=== PATIENT | female | born 1975 | race Caucasian/White ===

== ENCOUNTER 2017-01-12 20:36 | Emergency (ER) | payer MEDICAID ==
[~2017-01-12] VITALS: Ht 162.6 cm; Wt 91.0 kg
[~2017-01-12 20:36] MED LIST: IBUP-1510 PO; TRAM50TA PO
[2017-01-12] MEDS ORDERED: MORPHINE SULFATE 10 MG/ML CPJ IM ONE (22:45)
[2017-01-12] MEDS ORDERED: CEFTRIAXONE SODIUM 1 G/VIAL IM ONE (22:45)
[2017-01-12] MEDS ORDERED: LIDOCAINE HCL 1% 20ML VIAL (Pyxis) INJ ONE (23:03)
[2017-01-12 23:10] VITALS: BP 148/89
[2017-01-17] MEDS ORDERED: ALBU2.5V13 IH (07:45)
[2017-01-17] MEDS ORDERED: INSU3INS6 SUBCUT ×2 (07:46→07:47)
[2017-01-17] MEDS ORDERED: INSU100C3 SQ (07:48)
[2017-01-17] MEDS ORDERED: INSLAN SQ (07:50)
== END 2017-01-13 00:05 | disposition home or self-care (01) ==
LOC: ER 21:00
DX: L03.317 Cellulitis of buttock (principal); B37.2 Candidiasis of skin and nail; E11.9 Type 2 diabetes mellitus without complications; I10 Essential (primary) hypertension; F15.10 Other stimulant abuse, uncomplicated; J45.909 Unspecified asthma, uncomplicated; Z98.890 Other specified postprocedural states; Z88.6 Allergy status to analgesic agent; Z88.5 Allergy status to narcotic agent; Z88.2 Allergy status to sulfonamides
CPT/HCPCS: 96372; 99284; J0696; J2270; J3490

== ENCOUNTER 2018-11-24 20:24 | Inpatient (IN) | payer MEDICAID ==
[~2018-11-24] VITALS: Ht 160 cm; Wt 139.7 kg
[~2018-11-24 20:24] MED LIST changes: +ALBU2.5V13 IH; +AMLO10TA80 PO; +ASPI-1159 PO; +ATOR20TA65 PO; +BENA40TA9 PO; +FLUO10TA3 PO; -IBUP-1510 PO; +INSLAN SQ; +INSU100C3 SQ; +MAGN200T4 MT; +METO25TA6 PO; +RISP2 PO; -TRAM50TA PO
[2018-11-24] MEDS ORDERED: NITROGLYCERIN OINT 1GM/INCH UDPKT TD ONE (21:15)
[2018-11-24] MEDS ORDERED: ASPIRIN 81MG TABLET PO ONE (21:15)
[2018-11-24] MEDS ORDERED: FUROSEMIDE 40MG/4ML VIAL IV ONE (21:15)
[2018-11-24 21:26] LABS: HEMATOCRIT. 33.6 % (36.0-48.0); HEMOGLOBIN. 11.3 g/dL (12.0-16.0); MEAN CORPUSCULAR HEMOGLOBIN 28.7 pg (28.0-32.0); MEAN CORPUSCULAR VOLUME 85.2 fL (81.0-99.0); MONOCYTES % 4.3 % (2.0-8.0); NEUTROPHILS % 78.7 % (40.0-76.0); PLATELET 258 x1000/uL (130-400); RED BLOOD CELL COUNT 3.95 mill/uL (4.2-5.4); RED CELL DISTRIBUTION WIDTH 13.6 % (11.6-14.6)
[2018-11-24 21:27] LABS: CHLORIDE 111 mEq/L (98-107)
[2018-11-24 21:31] LABS: HCG SCREEN NEGATIVE
[2018-11-24 21:33] LABS: D-DIMER 1.72 mg/L FEU (<0.50); PARTIAL THROMBOPLASTIN TIME 27.8 sec (23.4-31.0); PROTHROMBIN TIME 9.9 sec (9.6-11.0)
[2018-11-25] MEDS ORDERED: IOHEXOL-350 100 ML BOTTLE ONE (02:12)
[2018-11-25] MEDS ORDERED: IBUPROFEN 400MG TABLET PO ONE (02:15)
[2018-11-25] MEDS ORDERED: CLONIDINE 0.2MG TABLET PO ONE (02:30)
[2018-11-25] MEDS ORDERED: ONDANSETRON HCL 4MG/2ML INJ IV PRN (08:45)
[2018-11-25] MEDS ORDERED: DEXTROSE 50% WATER 50ML SYRINGE IV PRN (08:45)
[2018-11-25] MEDS ORDERED: REGADENOSON 0.4 MG/5 ML IV NR (09:45)
[2018-11-25] MEDS: FUROSEMIDE 40MG/4ML VIAL IVP SCH ×2 (09:54→17:54)
[2018-11-25] MEDS: ASPIRIN 81MG TABLET PO SCH (10:00)
[2018-11-25] MEDS ORDERED: INSULIN GLARGINE UD 100 UNITS/ML SYR SUBCUT SCH (10:00)
[2018-11-25 11:09] LABS: T4 FREE 1.12 ng/dL (0.76-1.46)
[2018-11-25 11:41] LABS: CLARITY URINE CLEAR (CLEAR); COLOR URINE YELLOW (YELLOW); KETONES URINE NEGATIVE (NEGATIVE); LEUKOCYTE ESTERASE URINE NEGATIVE (NEGATIVE); NITRITE URINE NEGATIVE (NEGATIVE); OCCULT BLOOD URINE 1+ (NEGATIVE); PH URINE 6.5 (4.5-8.0); PROTEIN URINE 3+ (NEGATIVE); SPECIFIC GRAVITY URINE 1.014 (1.005-1.030); UROBILINOGEN URINE 0.2 E.U./dL (0.2-1.0)
[2018-11-25 11:54] LABS: *AMPHETAMINES SCREEN URINE NEGATIVE (NEGATIVE); *BARBITURATES SCREEN URINE NEGATIVE (NEGATIVE); *BENZODIAZEPINES SCREEN URINE NEGATIVE (NEGATIVE); *COCAINE SCREEN URINE NEGATIVE (NEGATIVE); METHADONE URINE SCREEN NEGATIVE (NEGATIVE); OPIATES URINE SCREEN NEGATIVE (NEGATIVE); PHENCYCLIDINE URINE SCREEN NEGATIVE (NEGATIVE)
[2018-11-25 11:55] LABS: CANNABINOID URINE SCREEN NEGATIVE (NEGATIVE)
[2018-11-25 12:30] VITALS: BP 170/96
[2018-11-25] MEDS ORDERED: ENOXAPARIN 30MG/0.3ML SYR SUBCUT SCH (12:30)
[2018-11-25] MEDS: BLOOD SUGAR DIAGNOSTIC STRIP TEST SCH ×2 (14:20→21:45)
[2018-11-25] MEDS: CARVEDILOL 6.25 MG TABLET PO SCH ×2 (14:31→20:34)
[2018-11-25] MEDS: ACETAMINOPHEN 325MG TABLET PO PRN (14:32)
[2018-11-25] MEDS: INSULIN LISPRO 100 UNITS/ML SUBCUT SCH ×5 (14:36→21:00)
[2018-11-25 15:47] LABS: CREATINE KINASE MB FRACTION 1.5 ng/mL (0.5-3.6)
[2018-11-25 16:00] VITALS: BP 159/73
[2018-11-25] MEDS ORDERED: PNEUMOCOCCAL 23-VAL P-SAC VAC 0.5 ML IM ONE (19:00)
[2018-11-25 20:00] VITALS: BP 146/82
[2018-11-25] MEDS: ATORVASTATIN CALCIUM 40MG TABLET PO SCH (20:34)
[2018-11-25] MEDS: AMLODIPINE 5MG TABLET PO SCH (20:34)
[2018-11-25] MEDS: INSULIN GLARGINE UD 100 UNITS/ML SYR SUBCUT SCH (21:51)
[2018-11-25] MEDS: ENOXAPARIN 40MG/0.4ML SYR SUBCUT SCH (23:41)
[2018-11-26] VITALS: BP 144/61
[2018-11-26 00:43] LABS: CREATINE KINASE MB FRACTION 1.3 ng/mL (0.5-3.6)
[2018-11-26 04:00] VITALS: BP 144/67
[2018-11-26 06:33] LABS: BASOPHILS % 0.7 % (0.0-2.0); EOSINOPHILS % 4.3 % (0.0-5.0); HEMATOCRIT. 29.3 % (36.0-48.0); LYMPHOCYTES % 40.6 % (20.0-50.0); MEAN CORPUSCULAR VOLUME 85.1 fL (81.0-99.0); MEAN PLATELET VOLUME 9.3 fl (7.4-10.4); MONOCYTES % 6.9 % (2.0-8.0); NEUTROPHILS % 47.5 % (40.0-76.0); PLATELET 254 x1000/uL (130-400); RED BLOOD CELL COUNT 3.45 mill/uL (4.2-5.4); RED CELL DISTRIBUTION WIDTH 13.7 % (11.6-14.6)
[2018-11-26] MEDS: INSULIN LISPRO 100 UNITS/ML SUBCUT SCH ×7 (06:35→21:44)
[2018-11-26] MEDS: BLOOD SUGAR DIAGNOSTIC STRIP TEST SCH ×4 (06:35→21:43)
[2018-11-26] MEDS: ACETAMINOPHEN 325MG TABLET PO PRN (06:45)
[2018-11-26 07:12] LABS: CREATINE KINASE MB FRACTION 1.2 ng/mL (0.5-3.6)
[2018-11-26 08:00] VITALS: BP 150/70
[2018-11-26] MEDS: CARVEDILOL 6.25 MG TABLET PO SCH ×2 (08:54→21:43)
[2018-11-26] MEDS: ASPIRIN 81MG TABLET PO SCH (08:54)
[2018-11-26] MEDS: AMLODIPINE 5MG TABLET PO SCH ×2 (08:54→21:42)
[2018-11-26] MEDS: FUROSEMIDE 40MG/4ML VIAL IVP SCH (08:54)
[2018-11-26] MEDS: INSULIN GLARGINE UD 100 UNITS/ML SYR SUBCUT SCH ×2 (11:43→21:50)
[2018-11-26 12:00] VITALS: BP 142/72
[2018-11-26] MEDS: ENOXAPARIN 40MG/0.4ML SYR SUBCUT SCH (12:46)
[2018-11-26] MEDS: GUAIFENESIN-DM 200MG-20MG/10ML UDC PO PRN ×3 (12:52→23:39)
[2018-11-26 16:00] VITALS: BP 151/75
[2018-11-26 20:00] VITALS: BP 159/81
[2018-11-26] MEDS: ATORVASTATIN CALCIUM 40MG TABLET PO SCH (21:43)
[2018-11-27] VITALS: BP 170/77
[2018-11-27 04:00] VITALS: BP 142/63
[2018-11-27] MEDS: INSULIN LISPRO 100 UNITS/ML SUBCUT SCH ×4 (06:45→12:37)
[2018-11-27 06:46] LABS: BASOPHILS % 0.6 % (0.0-2.0); EOSINOPHILS % 4.3 % (0.0-5.0); HEMATOCRIT. 30.6 % (36.0-48.0); HEMOGLOBIN. 10.2 g/dL (12.0-16.0); LYMPHOCYTES % 42.2 % (20.0-50.0); MEAN CORPUSCULAR HEMOGLOBIN 28.6 pg (28.0-32.0); MEAN CORPUSCULAR VOLUME 85.3 fL (81.0-99.0); MEAN PLATELET VOLUME 9.2 fl (7.4-10.4); MONOCYTES % 6.2 % (2.0-8.0); NEUTROPHILS % 46.7 % (40.0-76.0); PLATELET 263 x1000/uL (130-400); RED BLOOD CELL COUNT 3.59 mill/uL (4.2-5.4); RED CELL DISTRIBUTION WIDTH 13.8 % (11.6-14.6)
[2018-11-27] MEDS: ENOXAPARIN 40MG/0.4ML SYR SUBCUT SCH ×2 (06:50→12:36)
[2018-11-27] MEDS: BLOOD SUGAR DIAGNOSTIC STRIP TEST SCH ×2 (06:50→12:00)
[2018-11-27 08:00] VITALS: BP 148/53
[2018-11-27] MEDS ORDERED: FUROSEMIDE 40MG/4ML VIAL IVP SCH (09:00)
[2018-11-27] MEDS: CARVEDILOL 6.25 MG TABLET PO SCH (09:13)
[2018-11-27] MEDS: GUAIFENESIN-DM 200MG-20MG/10ML UDC PO PRN (09:13)
[2018-11-27] MEDS: AMLODIPINE 5MG TABLET PO SCH (09:13)
[2018-11-27] MEDS: ASPIRIN 81MG TABLET PO SCH (09:13)
[2018-11-27] MEDS: INSULIN GLARGINE UD 100 UNITS/ML SYR SUBCUT SCH (09:15)
[2018-11-27 12:00] VITALS: BP 185/87
[2018-11-27] MEDS ORDERED: CLONIDINE 0.1MG TABLET PO PRN (13:00)
[2018-11-27] MEDS ORDERED: HYDRALAZINE HCL 50MG TABLET PO SCH ×2 (13:45→21:00)
[2018-11-27 15:57] VITALS: BP 150/78
== END 2018-11-27 16:45 | disposition home or self-care (01) | DRG 194 ==
LOC: ER 20:24 → 5WST 11-25 02:07 → EDBEDREQ 11-25 02:10 → EDBEDREQTM 11-25 02:10 → ENRESERV 11-25 10:27
PROVIDERS: ADMIT Internal Medicine; ATTEND Internal Medicine
DX: I11.0 Hypertensive heart disease with heart failure (principal); N17.0 Acute kidney failure with tubular necrosis; E43 Unspecified severe protein-calorie malnutrition; I16.0 Hypertensive urgency; I50.43 Acute on chronic combined systolic (congestive) and diastolic (congestive) heart failure; E66.01 Morbid (severe) obesity due to excess calories; I42.9 Cardiomyopathy, unspecified; E11.65 Type 2 diabetes mellitus with hyperglycemia; M94.0 Chondrocostal junction syndrome [Tietze]; D64.9 Anemia, unspecified; E78.5 Hyperlipidemia, unspecified; E87.8 Other disorders of electrolyte and fluid balance, not elsewhere classified; I34.0 Nonrheumatic mitral (valve) insufficiency; Z87.891 Personal history of nicotine dependence; Z98.891 History of uterine scar from previous surgery; Z68.43 Body mass index [BMI] 50.0-59.9, adult; Z88.5 Allergy status to narcotic agent; Z88.2 Allergy status to sulfonamides; Z88.8 Allergy status to other drugs, medicaments and biological substances; Z88.6 Allergy status to analgesic agent; Z79.899 Other long term (current) drug therapy; Z79.4 Long term (current) use of insulin; Z79.51 Long term (current) use of inhaled steroids; Z71.3 Dietary counseling and surveillance
CPT/HCPCS: 36415; 71045; 71275; 78452; 80048; 80061; 80305; 81025; 82550; 82553; 82962; 83036; 83880; 84439; 84443; 84484; 84703; 85379; 90732; 93005; 93017; 93306; 93970; 96374; 99285; A9500; J1650; J1815; J1940; J2405; J2785; Q9967

== ENCOUNTER 2018-12-11 14:25 | Inpatient (IN) | payer MEDICAID ==
[~2018-12-11] VITALS: Ht 160 cm; Wt 136.1 kg
[~2018-12-11 14:25] MED LIST changes: -ALBU2.5V13 IH; -ASPI-1159 PO; -ATOR20TA65 PO; -BENA40TA9 PO; -FLUO10TA3 PO; -INSLAN SQ; -INSU100C3 SQ; -MAGN200T4 MT; -METO25TA6 PO; -RISP2 PO
[2018-12-11] MEDS ORDERED: IBUPROFEN 600MG TABLET PO ONE ×2 (16:00→22:00)
[2018-12-11 16:23] LABS: CHLORIDE 112 mEq/L (98-107)
[2018-12-11 16:24] LABS: BASOPHILS % 1.2 % (0.0-2.0); EOSINOPHILS % 2.4 % (0.0-5.0); HEMATOCRIT. 28.5 % (36.0-48.0); HEMOGLOBIN. 9.7 g/dL (12.0-16.0); LYMPHOCYTES % 23.2 % (20.0-50.0); MEAN CORPUSCULAR HEMOGLOBIN 28.8 pg (28.0-32.0); MEAN CORPUSCULAR VOLUME 84.9 fL (81.0-99.0); MEAN PLATELET VOLUME 8.3 fl (7.4-10.4); MONOCYTES % 6.5 % (2.0-8.0); NEUTROPHILS % 66.7 % (40.0-76.0); PLATELET 321 x1000/uL (130-400); RED BLOOD CELL COUNT 3.36 mill/uL (4.2-5.4); RED CELL DISTRIBUTION WIDTH 13.7 % (11.6-14.6)
[2018-12-11 16:25] LABS: PARTIAL THROMBOPLASTIN TIME 25.3 sec (23.4-31.0)
[2018-12-11 16:37] LABS: HCG SCREEN NEGATIVE
[2018-12-11 20:14] LABS: CLARITY URINE CLEAR (CLEAR); COLOR URINE YELLOW (YELLOW); KETONES URINE NEGATIVE (NEGATIVE); LEUKOCYTE ESTERASE URINE NEGATIVE (NEGATIVE); NITRITE URINE NEGATIVE (NEGATIVE); OCCULT BLOOD URINE NEGATIVE (NEGATIVE); PH URINE 5.5 (4.5-8.0); PROTEIN URINE 4+ (NEGATIVE); SPECIFIC GRAVITY URINE 1.017 (1.005-1.030); UROBILINOGEN URINE 0.2 E.U./dL (0.2-1.0)
[2018-12-11 20:28] LABS: *AMPHETAMINES SCREEN URINE NEGATIVE (NEGATIVE); *BARBITURATES SCREEN URINE NEGATIVE (NEGATIVE); *BENZODIAZEPINES SCREEN URINE NEGATIVE (NEGATIVE); *COCAINE SCREEN URINE NEGATIVE (NEGATIVE); CANNABINOID URINE SCREEN NEGATIVE (NEGATIVE); METHADONE URINE SCREEN NEGATIVE (NEGATIVE); OPIATES URINE SCREEN NEGATIVE (NEGATIVE); PHENCYCLIDINE URINE SCREEN NEGATIVE (NEGATIVE)
[2018-12-11] MEDS ORDERED: FUROSEMIDE 40MG/4ML VIAL IVP ONE (20:30)
[2018-12-12] VITALS (7 sets, daily range): BP systolic 130–166; BP diastolic 60–70
[2018-12-12] MEDS ORDERED: CLONIDINE 0.1MG TABLET PO PRN (01:30)
[2018-12-12] MEDS ORDERED: HYDROCODONE/ACETAMINOPHEN 5/325MG TABLET PO PRN (01:30)
[2018-12-12] MEDS: BLOOD SUGAR DIAGNOSTIC STRIP TEST SCH ×4 (06:25→21:16)
[2018-12-12] MEDS: FUROSEMIDE 40MG/4ML VIAL IVP SCH (08:58)
[2018-12-12] MEDS: ENOXAPARIN 40MG/0.4ML SYR SUBCUT SCH (08:59)
[2018-12-12] MEDS: CARVEDILOL 3.125 MG TABLET PO SCH ×2 (08:59→21:20)
[2018-12-12] MEDS: AMLODIPINE 5MG TABLET PO SCH (08:59)
[2018-12-12] MEDS ORDERED: AMLO5TAB88 PO (11:03)
[2018-12-12] MEDS ORDERED: ATOR40TA70 PO (11:03)
[2018-12-12] MEDS ORDERED: FURO40TA5 PO (11:03)
[2018-12-12] MEDS ORDERED: CARV6.2548 PO (11:03)
[2018-12-12] MEDS ORDERED: HYDR-4135 PO (11:03)
[2018-12-12] MEDS ORDERED: TRAMADOL 50MG TABLET PO PRN (11:30)
[2018-12-12] MEDS: ACETAMINOPHEN WITH CODEINE 300/30MG TABLET PO PRN ×2 (11:55→18:52)
[2018-12-12] MEDS ORDERED: DEXTROSE 50% WATER 50ML SYRINGE IV PRN (19:00)
[2018-12-12] MEDS ORDERED: BLOOD SUGAR DIAGNOSTIC STRIP TEST SCH (21:00)
[2018-12-12] MEDS: INSULIN LISPRO 100 UNITS/ML SUBCUT SCH (21:22)
[2018-12-13] VITALS: BP 138/65
[2018-12-13 04:00] VITALS: BP 148/75
[2018-12-13] MEDS: BLOOD SUGAR DIAGNOSTIC STRIP TEST SCH ×4 (06:25→21:40)
[2018-12-13 06:29] LABS: BASOPHILS % 0.8 % (0.0-2.0); EOSINOPHILS % 4.1 % (0.0-5.0); HEMATOCRIT. 25.9 % (36.0-48.0); HEMOGLOBIN. 8.6 g/dL (12.0-16.0); MEAN CORPUSCULAR HEMOGLOBIN 28.7 pg (28.0-32.0); MEAN PLATELET VOLUME 8.5 fl (7.4-10.4); MONOCYTES % 7.6 % (2.0-8.0); NEUTROPHILS % 55.5 % (40.0-76.0); PLATELET 283 x1000/uL (130-400); RED BLOOD CELL COUNT 3.01 mill/uL (4.2-5.4); RED CELL DISTRIBUTION WIDTH 13.6 % (11.6-14.6)
[2018-12-13] MEDS: INSULIN LISPRO 100 UNITS/ML SUBCUT SCH ×4 (07:36→21:00)
[2018-12-13 08:00] VITALS: BP 140/56
[2018-12-13] MEDS: ACETAMINOPHEN WITH CODEINE 300/30MG TABLET PO PRN ×3 (08:10→18:39)
[2018-12-13] MEDS: FUROSEMIDE 40MG/4ML VIAL IVP SCH (08:12)
[2018-12-13] MEDS: AMLODIPINE 5MG TABLET PO SCH (08:12)
[2018-12-13] MEDS: ENOXAPARIN 40MG/0.4ML SYR SUBCUT SCH (08:12)
[2018-12-13] MEDS: CARVEDILOL 3.125 MG TABLET PO SCH ×2 (08:12→21:40)
[2018-12-13 16:00] VITALS: BP 166/77
[2018-12-13 20:00] VITALS: BP_SYST 136; BP_SYST 175; BP_DIAS 54; BP_DIAS 63
[2018-12-14] VITALS: BP 132/52
[2018-12-14 04:00] VITALS: BP 126/57
[2018-12-14 06:30] LABS: BASOPHILS % 0.8 % (0.0-2.0); EOSINOPHILS % 3.5 % (0.0-5.0); HEMATOCRIT. 23.9 % (36.0-48.0); LYMPHOCYTES % 34.3 % (20.0-50.0); MEAN CORPUSCULAR HEMOGLOBIN 28.6 pg (28.0-32.0); MEAN CORPUSCULAR VOLUME 85.8 fL (81.0-99.0); MEAN PLATELET VOLUME 8.3 fl (7.4-10.4); MONOCYTES % 6.7 % (2.0-8.0); NEUTROPHILS % 54.7 % (40.0-76.0); PLATELET 262 x1000/uL (130-400); RED BLOOD CELL COUNT 2.78 mill/uL (4.2-5.4); RED CELL DISTRIBUTION WIDTH 13.4 % (11.6-14.6)
[2018-12-14] MEDS: BLOOD SUGAR DIAGNOSTIC STRIP TEST SCH ×3 (07:09→17:28)
[2018-12-14] MEDS: INSULIN LISPRO 100 UNITS/ML SUBCUT SCH ×3 (07:10→17:28)
[2018-12-14 08:00] VITALS: BP 147/56
[2018-12-14] MEDS: CARVEDILOL 3.125 MG TABLET PO SCH (08:56)
[2018-12-14] MEDS: AMLODIPINE 5MG TABLET PO SCH (08:56)
[2018-12-14] MEDS: ACETAMINOPHEN WITH CODEINE 300/30MG TABLET PO PRN ×3 (08:57→16:46)
[2018-12-14] MEDS: FUROSEMIDE 40MG/4ML VIAL IVP SCH (08:57)
[2018-12-14] MEDS: DOCUSATE SODIUM 250MG CAPSULE PO SCH ×2 (08:57→16:47)
[2018-12-14] MEDS: ENOXAPARIN 40MG/0.4ML SYR SUBCUT SCH (08:57)
[2018-12-14 12:00] VITALS: BP 133/59
[2018-12-14 16:00] VITALS: BP 142/51
[2018-12-14 17:33] VITALS: BP 142/51
[2018-12-15 13:13] LABS: A/G RATIO 0.6 (0.7-1.7); ALBUMIN 2.1 g/dL (2.9-4.4); ALPHA-1-GLOBULIN 0.2 g/dL (0.0-0.4); ALPHA-2-GLOBULIN 0.9 g/dL (0.4-1.0); GAMMA GLOBULINS 1.3 g/dL (0.4-1.8); GLOBULIN TOTAL 3.5 g/dL (2.2-3.9); M-SPIKE Not Observed g/dL (Not Observed); TOTAL PROTEIN SERUM 5.6 g/dL (6.0-8.5)
[2018-12-15 17:11] LABS: ANTI-NUCLEAR ANTIBODIES DIRECT Negative (Negative)
[2018-12-16 07:22] LABS: COMPLEMENT C3 183 mg/dL (82-167)
== END 2018-12-14 19:15 | disposition home health service (06) | DRG 469 ==
LOC: ER 14:25 → 8WST 21:37 → ENRESERV 22:56
PROVIDERS: ADMIT Internal Medicine; ATTEND Internal Medicine
DX: N17.9 Acute kidney failure, unspecified (principal); E43 Unspecified severe protein-calorie malnutrition; E11.22 Type 2 diabetes mellitus with diabetic chronic kidney disease; E11.319 Type 2 diabetes mellitus with unspecified diabetic retinopathy without macular edema; S92.302A Fracture of unspecified metatarsal bone(s), left foot, initial encounter for closed fracture; D64.9 Anemia, unspecified; E11.610 Type 2 diabetes mellitus with diabetic neuropathic arthropathy; E66.01 Morbid (severe) obesity due to excess calories; E87.8 Other disorders of electrolyte and fluid balance, not elsewhere classified; I13.0 Hypertensive heart and chronic kidney disease with heart failure and stage 1 through stage 4 chronic kidney disease, or unspecified chronic kidney disease; M79.605 Pain in left leg; E11.42 Type 2 diabetes mellitus with diabetic polyneuropathy; E11.65 Type 2 diabetes mellitus with hyperglycemia; E78.00 Pure hypercholesterolemia, unspecified; W18.39XA Other fall on same level, initial encounter; E78.5 Hyperlipidemia, unspecified; I50.42 Chronic combined systolic (congestive) and diastolic (congestive) heart failure; N18.3 Chronic kidney disease, stage 3 (moderate); Z79.4 Long term (current) use of insulin; Z98.891 History of uterine scar from previous surgery; Z88.2 Allergy status to sulfonamides; Z88.5 Allergy status to narcotic agent; Z71.3 Dietary counseling and surveillance; Y93.89 Activity, other specified; Y92.89 Other specified places as the place of occurrence of the external cause; Y99.8 Other external cause status; Z68.43 Body mass index [BMI] 50.0-59.9, adult
CPT/HCPCS: 36415; 71045; 73590; 73610; 73630; 73700; 76770; 80048; 80305; 82570; 82962; 83735; 83880; 84155; 84156; 84165; 84484; 84703; 86038; 86160; 93005; 93971; 96374; 97162; 99285; A6261; J1650; J1815; J1940

== ENCOUNTER 2019-04-15 02:10 | Inpatient (IN) | payer MEDICAID ==
[2019-04-15] VITALS (8 sets, daily range): BP systolic 142–158; BP diastolic 75–109
[~2019-04-15] VITALS: Ht 162.6 cm; Wt 137.4 kg
[~2019-04-15 02:10] MED LIST changes: +AMLO5TAB88 PO; +ATOR40TA70 PO; +CARV6.2548 PO; +FURO40TA5 PO; +HYDR-4135 PO
[2019-04-15] MEDS ORDERED: FUROSEMIDE 100MG/10ML VIAL IVP ONE (02:45)
[2019-04-15 03:15] LABS: CHLORIDE 111 mEq/L (98-107)
[2019-04-15 03:27] LABS: BASOPHILS % 1.2 % (0.0-2.0); D-DIMER 1.59 mg/L FEU (<0.50); EOSINOPHILS % 1.9 % (0.0-5.0); HEMATOCRIT. 29.7 % (36.0-48.0); HEMOGLOBIN. 9.4 g/dL (12.0-16.0); INR 1.1; LYMPHOCYTES % 27.1 % (20.0-50.0); MEAN CORPUSCULAR HEMOGLOBIN 25.9 pg (28.0-32.0); MEAN CORPUSCULAR VOLUME 81.6 fL (81.0-99.0); MEAN PLATELET VOLUME 8.4 fl (7.4-10.4); MONOCYTES % 3.9 % (2.0-8.0); NEUTROPHILS % 65.9 % (40.0-76.0); PARTIAL THROMBOPLASTIN TIME 21.2 sec (23.4-31.0); PLATELET 318 x1000/uL (130-400); PROTHROMBIN TIME 11.6 sec (9.6-11.0); RED BLOOD CELL COUNT 3.64 mill/uL (4.2-5.4); RED CELL DISTRIBUTION WIDTH 17.9 % (11.6-14.6)
[2019-04-15] MEDS: ALBUTEROL (0.5%) 2.5MG/0.5ML NEB HHN SCH ×2 (04:40→04:45)
[2019-04-15] MEDS ORDERED: HYDROMORPHONE HCL/PF 2MG/ML CPJ IV ONE (04:45)
[2019-04-15] MEDS ORDERED: HEPARIN 25,000 UNITS PREMIX 500 ML IV PRN (06:00)
[2019-04-15] MEDS ORDERED: ACETAMINOPHEN 325MG TABLET PO PRN (08:15)
[2019-04-15] MEDS ORDERED: MAGNESIUM/ALUMINUM HYDROXIDE/SIMETHICONE 30ML UDC PO PRN (08:15)
[2019-04-15] MEDS ORDERED: LORAZEPAM 2MG/ML CPJ IV PRN (08:15)
[2019-04-15] MEDS ORDERED: DIPHENHYDRAMINE 50MG/ML VIAL IV PRN (08:15)
[2019-04-15] MEDS ORDERED: HYDROCODONE/ACETAMINOPHEN 5/325MG TABLET PO PRN (08:15)
[2019-04-15] MEDS ORDERED: NA PHOS,M-B/NA PHOS,DI-BA ENEMA 118ML PR PRN (08:15)
[2019-04-15] MEDS ORDERED: IPRATROPIUM/ALBUTEROL 0.5-3(2.5)MG/3ML NEB NEB PRN (08:15)
[2019-04-15] MEDS ORDERED: DOCUSATE SODIUM 100MG CAPSULE PO PRN (08:15)
[2019-04-15] MEDS ORDERED: ENOXAPARIN 40MG/0.4ML SYR SUBCUT SCH (08:15)
[2019-04-15] MEDS ORDERED: METO2.5T14 PO (09:26)
[2019-04-15] MEDS ORDERED: ALBU4TAB6 INH (09:26)
[2019-04-15] MEDS ORDERED: POTA25TA8 PO (09:26)
[2019-04-15] MEDS ORDERED: DEXTROSE 50% WATER 50ML SYRINGE IV PRN (10:00)
[2019-04-15] MEDS: FUROSEMIDE 40MG/4ML VIAL IV SCH (10:33)
[2019-04-15] MEDS: CARVEDILOL 6.25 MG TABLET PO SCH ×2 (10:34→21:01)
[2019-04-15] MEDS: ASPIRIN 81MG EC TABLET PO SCH (10:34)
[2019-04-15] MEDS: MORPHINE SULFATE 2 MG/ML CPJ (NOT FOR IM USE) IV PRN ×2 (10:36→21:27)
[2019-04-15] MEDS: AMLODIPINE 10MG TABLET PO SCH (11:45)
[2019-04-15] MEDS: BLOOD SUGAR DIAGNOSTIC STRIP TEST SCH ×3 (11:45→21:03)
[2019-04-15] MEDS: INSULIN LISPRO 100 UNITS/ML SUBCUT SCH ×3 (12:31→21:03)
[2019-04-15] MEDS: CLONIDINE 0.1MG TABLET PO PRN (12:48)
[2019-04-15] MEDS ORDERED: ENOXAPARIN 150MG/ML SYR SUBCUT SCH (13:00)
[2019-04-15] MEDS: HYDRALAZINE HCL 50MG TABLET PO SCH ×2 (13:31→22:05)
[2019-04-15] MEDS: METOPROLOL TARTRATE 50MG TABLET PO SCH ×2 (13:31→21:01)
[2019-04-15] MEDS: ENOXAPARIN 150MG/ML SYR SUBCUT SCH ×2 (13:33→23:57)
[2019-04-15 14:57] LABS: BG BASE EXCESS -6.9 mmol/L (-2.0-2.0); BG CARBOXYHEMOGLOBIN 0.3 % (0.5-1.5); BG DEOXYHEMOGLOBIN 2.4 % (0.0-5.0); BG FRACTION INSPIRED OXYGEN 32; BG HCO3 ACT 17.6 mmol/L (22.0-26.0); BG METHEMOGLOBIN 0.4 % (0.0-1.5); BG OXYGEN SATURATION 97.6 % (92.0-98.5); BG OXYHEMOGLOBIN 96.9 % (94.0-97.0); BG PCO2 31.4 mmHg (35.0-45.0); BG PH 7.366 (7.350-7.450); BG PO2 120.9 mmHg (75.0-100.0); BG SAMPLE SITE LEFT RADIAL; BG TOTAL HEMOGLOBIN 9.2 g/dL (12.0-18.0); BG VENT MODE NASAL CANNULA
[2019-04-15 15:20] LABS: *BARBITURATES SCREEN URINE NEGATIVE (NEGATIVE)
[2019-04-15 15:22] LABS: *AMPHETAMINES SCREEN URINE NEGATIVE (NEGATIVE); *BENZODIAZEPINES SCREEN URINE NEGATIVE (NEGATIVE); *COCAINE SCREEN URINE NEGATIVE (NEGATIVE)
[2019-04-15 15:24] LABS: CANNABINOID URINE SCREEN NEGATIVE (NEGATIVE)
[2019-04-15 15:25] LABS: METHADONE URINE SCREEN NEGATIVE (NEGATIVE)
[2019-04-15 15:26] LABS: PHENCYCLIDINE URINE SCREEN NEGATIVE (NEGATIVE)
[2019-04-15 15:31] LABS: OPIATES URINE SCREEN PRESUMTIVE POSITIVE (NEGATIVE)
[2019-04-15 20:19] LABS: CREATINE KINASE 59 IU/L (26-192)
[2019-04-15 20:20] LABS: CREATINE KINASE MB FRACTION < 1.0 ng/mL (0.5-3.6)
[2019-04-15] MEDS: ATORVASTATIN CALCIUM 40MG TABLET PO SCH (21:02)
[2019-04-15] MEDS: IPRATROPIUM BROMIDE (0.02%) 0.5MG/2.5ML NEB HHN SCH (21:45)
[2019-04-16] VITALS (11 sets, daily range): BP systolic 122–157; BP diastolic 79–97
[2019-04-16] LABS: CREATINE KINASE 55 IU/L (26-192)
[2019-04-16 00:01] LABS: CREATINE KINASE MB FRACTION 1.1 ng/mL (0.5-3.6)
[2019-04-16] MEDS: IPRATROPIUM BROMIDE (0.02%) 0.5MG/2.5ML NEB HHN SCH ×4 (01:43→20:42)
[2019-04-16] MEDS: HYDRALAZINE HCL 50MG TABLET PO SCH ×3 (06:36→21:09)
[2019-04-16 06:43] LABS: BASOPHILS % 1.2 % (0.0-2.0); EOSINOPHILS % 3.5 % (0.0-5.0); HEMATOCRIT. 25.6 % (36.0-48.0); HEMOGLOBIN. 8.3 g/dL (12.0-16.0); LYMPHOCYTES % 34.5 % (20.0-50.0); MEAN CORPUSCULAR HEMOGLOBIN 26.4 pg (28.0-32.0); MEAN CORPUSCULAR VOLUME 81.1 fL (81.0-99.0); MEAN PLATELET VOLUME 8.5 fl (7.4-10.4); MONOCYTES % 6.1 % (2.0-8.0); NEUTROPHILS % 54.7 % (40.0-76.0); PLATELET 274 x1000/uL (130-400); RED BLOOD CELL COUNT 3.16 mill/uL (4.2-5.4); RED CELL DISTRIBUTION WIDTH 18.3 % (11.6-14.6)
[2019-04-16 06:59] LABS: CHLORIDE 110 mEq/L (98-107)
[2019-04-16 07:11] LABS: LDL CHOLESTEROL 80 mg/dL (5-100)
[2019-04-16 07:12] LABS: CREATINE KINASE 45 IU/L (26-192); CREATINE KINASE MB FRACTION < 1.0 ng/mL (0.5-3.6); HDL CHOLESTEROL 26 mg/dL (40-59); T4 FREE 1.23 ng/dL (0.76-1.46)
[2019-04-16] MEDS: BLOOD SUGAR DIAGNOSTIC STRIP TEST SCH ×4 (07:35→21:12)
[2019-04-16] MEDS: INSULIN LISPRO 100 UNITS/ML SUBCUT SCH ×4 (08:24→21:23)
[2019-04-16] MEDS: ASPIRIN 81MG EC TABLET PO SCH (09:51)
[2019-04-16] MEDS: FUROSEMIDE 40MG/4ML VIAL IV SCH (09:51)
[2019-04-16] MEDS: METOLAZONE 2.5MG TABLET PO SCH (09:51)
[2019-04-16] MEDS: POTASSIUM CHLORIDE 20MEQ TABLET SR PO SCH (09:51)
[2019-04-16] MEDS: METOPROLOL TARTRATE 50MG TABLET PO SCH ×2 (09:51→20:54)
[2019-04-16] MEDS: AMLODIPINE 10MG TABLET PO SCH (09:52)
[2019-04-16] MEDS: ENOXAPARIN 150MG/ML SYR SUBCUT SCH ×2 (09:52→20:57)
[2019-04-16] MEDS: CARVEDILOL 6.25 MG TABLET PO SCH ×2 (09:52→20:54)
[2019-04-16] MEDS: MORPHINE SULFATE 2 MG/ML CPJ (NOT FOR IM USE) IV PRN ×2 (12:05→20:59)
[2019-04-16] MEDS: ATORVASTATIN CALCIUM 40MG TABLET PO SCH (20:53)
[2019-04-17] VITALS (12 sets, daily range): BP systolic 122–154; BP diastolic 61–97
[2019-04-17] MEDS: IPRATROPIUM BROMIDE (0.02%) 0.5MG/2.5ML NEB HHN SCH ×4 (02:08→20:20)
[2019-04-17] MEDS: HYDRALAZINE HCL 50MG TABLET PO SCH ×3 (06:35→22:13)
[2019-04-17] MEDS: BLOOD SUGAR DIAGNOSTIC STRIP TEST SCH ×4 (07:50→21:00)
[2019-04-17] MEDS: INSULIN LISPRO 100 UNITS/ML SUBCUT SCH ×4 (07:54→21:00)
[2019-04-17 08:30] LABS: BASOPHILS % 1.2 % (0.0-2.0); EOSINOPHILS % 4.6 % (0.0-5.0); HEMATOCRIT. 27.9 % (36.0-48.0); LYMPHOCYTES % 34.5 % (20.0-50.0); MEAN CORPUSCULAR HEMOGLOBIN 26.3 pg (28.0-32.0); MEAN CORPUSCULAR VOLUME 81.5 fL (81.0-99.0); MEAN PLATELET VOLUME 8.2 fl (7.4-10.4); NEUTROPHILS % 53.7 % (40.0-76.0); PLATELET 282 x1000/uL (130-400); RED BLOOD CELL COUNT 3.42 mill/uL (4.2-5.4); RED CELL DISTRIBUTION WIDTH 18.3 % (11.6-14.6)
[2019-04-17] MEDS: POTASSIUM CHLORIDE 20MEQ TABLET SR PO SCH (09:58)
[2019-04-17] MEDS: ENOXAPARIN 150MG/ML SYR SUBCUT SCH ×2 (09:58→22:12)
[2019-04-17] MEDS: METOLAZONE 2.5MG TABLET PO SCH (09:58)
[2019-04-17] MEDS: FUROSEMIDE 40MG/4ML VIAL IV SCH ×2 (09:58→10:10)
[2019-04-17] MEDS: METOPROLOL TARTRATE 50MG TABLET PO SCH ×2 (09:59→22:14)
[2019-04-17] MEDS: CARVEDILOL 6.25 MG TABLET PO SCH ×2 (09:59→22:13)
[2019-04-17] MEDS: ASPIRIN 81MG EC TABLET PO SCH (09:59)
[2019-04-17] MEDS: AMLODIPINE 10MG TABLET PO SCH (10:00)
[2019-04-17] MEDS ORDERED: DIGOXIN 500MCG/2ML AMP IV NR ×2 (12:45→13:00)
[2019-04-17] MEDS: MORPHINE SULFATE 2 MG/ML CPJ (NOT FOR IM USE) IV PRN ×2 (14:14→22:40)
[2019-04-17 16:19] LABS: CLARITY URINE CLEAR (CLEAR); COLOR URINE YELLOW (YELLOW); KETONES URINE NEGATIVE (NEGATIVE); LEUKOCYTE ESTERASE URINE NEGATIVE (NEGATIVE); NITRITE URINE NEGATIVE (NEGATIVE); OCCULT BLOOD URINE NEGATIVE (NEGATIVE); PH URINE 5.5 (4.5-8.0); PROTEIN URINE 2+ (NEGATIVE); SPECIFIC GRAVITY URINE 1.008 (1.005-1.030); UROBILINOGEN URINE 0.2 E.U./dL (0.2-1.0)
[2019-04-17] MEDS: ATORVASTATIN CALCIUM 40MG TABLET PO SCH (22:14)
[2019-04-18] VITALS (19 sets, daily range): BP systolic 108–159; BP diastolic 65–104
[2019-04-18] MEDS: IPRATROPIUM BROMIDE (0.02%) 0.5MG/2.5ML NEB HHN SCH ×5 (01:28→21:04)
[2019-04-18] MEDS: HYDRALAZINE HCL 50MG TABLET PO SCH ×3 (05:46→21:03)
[2019-04-18 05:53] LABS: BASOPHILS % 1.1 % (0.0-2.0); EOSINOPHILS % 3.9 % (0.0-5.0); HEMATOCRIT. 26.1 % (36.0-48.0); HEMOGLOBIN. 8.5 g/dL (12.0-16.0); LYMPHOCYTES % 31.1 % (20.0-50.0); MEAN CORPUSCULAR HEMOGLOBIN 26.4 pg (28.0-32.0); MEAN CORPUSCULAR VOLUME 81.4 fL (81.0-99.0); MEAN PLATELET VOLUME 8.6 fl (7.4-10.4); MONOCYTES % 6.2 % (2.0-8.0); NEUTROPHILS % 57.7 % (40.0-76.0); PLATELET 289 x1000/uL (130-400); RED BLOOD CELL COUNT 3.21 mill/uL (4.2-5.4); RED CELL DISTRIBUTION WIDTH 17.7 % (11.6-14.6)
[2019-04-18] MEDS: BLOOD SUGAR DIAGNOSTIC STRIP TEST SCH ×4 (07:48→20:57)
[2019-04-18] MEDS: INSULIN LISPRO 100 UNITS/ML SUBCUT SCH ×4 (07:48→20:58)
[2019-04-18] MEDS: FUROSEMIDE 40MG/4ML VIAL IV SCH (08:56)
[2019-04-18] MEDS: POTASSIUM CHLORIDE 20MEQ TABLET SR PO SCH (08:57)
[2019-04-18] MEDS: CARVEDILOL 6.25 MG TABLET PO SCH ×2 (08:57→20:56)
[2019-04-18] MEDS: AMLODIPINE 10MG TABLET PO SCH (08:57)
[2019-04-18] MEDS: ASPIRIN 81MG EC TABLET PO SCH (08:57)
[2019-04-18] MEDS: METOPROLOL TARTRATE 50MG TABLET PO SCH ×2 (08:58→20:56)
[2019-04-18] MEDS: METOLAZONE 2.5MG TABLET PO SCH (09:04)
[2019-04-18] MEDS: ENOXAPARIN 150MG/ML SYR SUBCUT SCH (09:04)
[2019-04-18] MEDS: MORPHINE SULFATE 2 MG/ML CPJ (NOT FOR IM USE) IV PRN ×2 (15:24→20:59)
[2019-04-18] MEDS: ATORVASTATIN CALCIUM 40MG TABLET PO SCH (20:57)
[2019-04-19] VITALS (22 sets, daily range): BP systolic 134–192; BP diastolic 64–99
[2019-04-19] MEDS: IPRATROPIUM BROMIDE (0.02%) 0.5MG/2.5ML NEB HHN SCH ×3 (02:00→14:13)
[2019-04-19] MEDS: HYDRALAZINE HCL 50MG TABLET PO SCH ×3 (05:02→21:24)
[2019-04-19 05:50] LABS: BASOPHILS % 0.9 % (0.0-2.0); EOSINOPHILS % 4.7 % (0.0-5.0); HEMATOCRIT. 27.3 % (36.0-48.0); HEMOGLOBIN. 8.8 g/dL (12.0-16.0); LYMPHOCYTES % 34.7 % (20.0-50.0); MEAN CORPUSCULAR HEMOGLOBIN 26.2 pg (28.0-32.0); MEAN CORPUSCULAR VOLUME 81.2 fL (81.0-99.0); MEAN PLATELET VOLUME 8.4 fl (7.4-10.4); MONOCYTES % 6.9 % (2.0-8.0); NEUTROPHILS % 52.8 % (40.0-76.0); PLATELET 281 x1000/uL (130-400); RED BLOOD CELL COUNT 3.36 mill/uL (4.2-5.4); RED CELL DISTRIBUTION WIDTH 17.9 % (11.6-14.6)
[2019-04-19] MEDS: BLOOD SUGAR DIAGNOSTIC STRIP TEST SCH ×4 (07:30→21:10)
[2019-04-19] MEDS: CARVEDILOL 6.25 MG TABLET PO SCH ×2 (09:00→20:26)
[2019-04-19] MEDS: METOPROLOL TARTRATE 50MG TABLET PO SCH ×2 (09:00→20:27)
[2019-04-19] MEDS: METOLAZONE 2.5MG TABLET PO SCH (09:00)
[2019-04-19] MEDS: AMLODIPINE 10MG TABLET PO SCH (09:00)
[2019-04-19 10:20] LABS: INR 1.1; PROTHROMBIN TIME 11.4 sec (9.6-11.0)
[2019-04-19 13:43] LABS: HCG SCREEN NEGATIVE
[2019-04-19] MEDS ORDERED: HEPARIN 1,000 UNITS PREMIX 1,500 ML IV ONE (14:35)
[2019-04-19] MEDS ORDERED: GLYCOPYRROLATE 0.2 MG/ML 2ML VIAL ONE (15:27)
[2019-04-19] MEDS ORDERED: FENTANYL CITRATE/PF 50MCG/ML 2ML VIAL ONE ×2 (15:27→16:49)
[2019-04-19] MEDS ORDERED: NEOSTIGMINE METHYLSULFATE 1MG/ML 10 ML VIAL ONE (15:27)
[2019-04-19] MEDS ORDERED: PROPOFOL 200MG/20ML VIAL IV ONE (15:27)
[2019-04-19] MEDS ORDERED: MIDAZOLAM HCL 2 MG/2 ML VIAL ONE ×2 (15:27→18:18)
[2019-04-19] MEDS ORDERED: ONDANSETRON HCL 4MG/2ML INJ ONE (16:14)
[2019-04-19] MEDS ORDERED: DEXAMETHASONE 4MG/ML 1ML VIAL ONE (16:14)
[2019-04-19] MEDS ORDERED: LIDOCAINE HCL 1% 20ML VIAL (Pyxis) INJ ONE (16:38)
[2019-04-19] MEDS ORDERED: ROCURONIUM BROMIDE 10MG/ML VIAL 5ML IV PRN (17:45)
[2019-04-19] MEDS ORDERED: HYDROMORPHONE HCL/PF 2MG/ML CPJ IV PRN (18:00)
[2019-04-19] MEDS ORDERED: ONDANSETRON HCL 4MG/2ML INJ IV PRN (18:00)
[2019-04-19] MEDS ORDERED: LABETALOL 5MG/ML SYR 20 MG/4 ML SYRINGE IV PRN (18:00)
[2019-04-19] MEDS ORDERED: MEPERIDINE HCL/PF 25MG/ML CPJ IV PRN (18:00)
[2019-04-19] MEDS ORDERED: VECURONIUM BROMIDE 10 MG/VIAL IV ONE (18:13)
[2019-04-19] MEDS ORDERED: LABETALOL HCL 5MG/ML VIAL 20ML IV ONE (18:13)
[2019-04-19] MEDS ORDERED: CEFAZOLIN SODIUM 1000MG/VIAL ONE (18:13)
[2019-04-19] MEDS ORDERED: SODIUM CHLORIDE 0.9% 10ML VIAL ONE (18:13)
[2019-04-19] MEDS ORDERED: ATROPINE SULFATE 1MG/10ML SYR IV PRN (18:45)
[2019-04-19] MEDS ORDERED: HEPARIN SODIUM 1,000 UNIT/1ML VIAL IV ONE (19:00)
[2019-04-19] MEDS ORDERED: FUROSEMIDE 100MG/10ML VIAL IVP NR (20:15)
[2019-04-19] MEDS: MORPHINE SULFATE 2 MG/ML CPJ (NOT FOR IM USE) IV PRN (20:16)
[2019-04-19] MEDS: ATORVASTATIN CALCIUM 40MG TABLET PO SCH (20:27)
[2019-04-19] MEDS: MIDAZOLAM HCL 50 MG in DEXTROSE 5% WATER 40 ML IV PRN (20:33)
[2019-04-19] MEDS: FENTANYL CITRATE/PF 500 MCG in SODIUM CHLORIDE 0.9% 40 ML IV PRN (20:33)
[2019-04-19 21:09] LABS: BG CARBOXYHEMOGLOBIN 0.3 % (0.5-1.5); BG DEOXYHEMOGLOBIN 2.1 % (0.0-5.0); BG FRACTION INSPIRED OXYGEN 100; BG HCO3 ACT 18.4 mmol/L (22.0-26.0); BG METHEMOGLOBIN 0.3 % (0.0-1.5); BG OXYGEN SATURATION 97.9 % (92.0-98.5); BG OXYHEMOGLOBIN 97.3 % (94.0-97.0); BG PCO2 36.2 mmHg (35.0-45.0); BG PH 7.323 (7.350-7.450); BG PO2 129.9 mmHg (75.0-100.0); BG SAMPLE SITE RIGHT RADIAL; BG TIDAL VOLUME(mL) 600 mL; BG TOTAL HEMOGLOBIN 10.1 g/dL (12.0-18.0); BG VENT MODE VENT - A/C; BG VENT RATE 18 set
[2019-04-20] VITALS (48 sets, daily range): BP systolic 136–184; BP diastolic 72–103
[2019-04-20] MEDS: IPRATROPIUM BROMIDE (0.02%) 0.5MG/2.5ML NEB HHN SCH ×4 (01:27→20:32)
[2019-04-20] MEDS: MIDAZOLAM HCL 50 MG in DEXTROSE 5% WATER 40 ML IV PRN (02:02)
[2019-04-20] MEDS: FENTANYL CITRATE/PF 500 MCG in SODIUM CHLORIDE 0.9% 40 ML IV PRN (05:08)
[2019-04-20 05:41] LABS: HEMATOCRIT. 28.3 % (36.0-48.0); HEMOGLOBIN. 9.1 g/dL (12.0-16.0); MEAN CORPUSCULAR HEMOGLOBIN 26.1 pg (28.0-32.0); MEAN CORPUSCULAR VOLUME 81.5 fL (81.0-99.0); MEAN PLATELET VOLUME 8.1 fl (7.4-10.4); PLATELET 275 x1000/uL (130-400); RED BLOOD CELL COUNT 3.47 mill/uL (4.2-5.4); RED CELL DISTRIBUTION WIDTH 18.2 % (11.6-14.6)
[2019-04-20] MEDS: BLOOD SUGAR DIAGNOSTIC STRIP TEST SCH ×4 (07:46→21:22)
[2019-04-20] MEDS ORDERED: SODIUM POLYSTYRENE SULFONATE 15 G/60 ML BOT PO NR (08:15)
[2019-04-20 08:55] LABS: BG BASE EXCESS -6.7 mmol/L (-2.0-2.0); BG CARBOXYHEMOGLOBIN 0.3 % (0.5-1.5); BG DEOXYHEMOGLOBIN 2.5 % (0.0-5.0); BG FRACTION INSPIRED OXYGEN 40; BG HCO3 ACT 16.4 mmol/L (22.0-26.0); BG METHEMOGLOBIN 0.4 % (0.0-1.5); BG OXYGEN SATURATION 97.5 % (92.0-98.5); BG OXYHEMOGLOBIN 96.8 % (94.0-97.0); BG PCO2 25.2 mmHg (35.0-45.0); BG PH 7.431 (7.350-7.450); BG PO2 103.9 mmHg (75.0-100.0); BG SAMPLE SITE RIGHT RADIAL; BG TIDAL VOLUME(mL) 600 mL; BG TOTAL HEMOGLOBIN 9.7 g/dL (12.0-18.0); BG VENT MODE VENT - A/C; BG VENT RATE 18 set
[2019-04-20] MEDS: CARVEDILOL 6.25 MG TABLET PO SCH ×3 (09:00→21:22)
[2019-04-20] MEDS: AMLODIPINE 10MG TABLET PO SCH ×2 (09:00→16:13)
[2019-04-20] MEDS: METOLAZONE 2.5MG TABLET PO SCH (09:00)
[2019-04-20] MEDS: METOPROLOL TARTRATE 50MG TABLET PO SCH ×3 (09:00→21:21)
[2019-04-20 09:33] LABS: PLATELET ESTIMATE NORMAL
[2019-04-20] MEDS ORDERED: METHYLPREDNISOLONE SOD SUCC 125 MG/2 ML VIAL IV NR (11:15)
[2019-04-20] MEDS ORDERED: HYDRALAZINE 20MG/ML VIAL IV NR ×2 (11:15→14:00)
[2019-04-20 12:52] LABS: BG BASE EXCESS -5.5 mmol/L (-2.0-2.0); BG CARBOXYHEMOGLOBIN 0.3 % (0.5-1.5); BG DEOXYHEMOGLOBIN 3.4 % (0.0-5.0); BG FRACTION INSPIRED OXYGEN 40; BG HCO3 ACT 18.1 mmol/L (22.0-26.0); BG METHEMOGLOBIN 0.2 % (0.0-1.5); BG OXYGEN SATURATION 96.6 % (92.0-98.5); BG OXYHEMOGLOBIN 96.1 % (94.0-97.0); BG PH 7.414 (7.350-7.450); BG PO2 94.6 mmHg (75.0-100.0); BG PRESSURE SUPPORT 8; BG SAMPLE SITE RIGHT RADIAL; BG TOTAL HEMOGLOBIN 10.1 g/dL (12.0-18.0); BG VENT MODE VENT - CPAP
[2019-04-20] MEDS: HYDRALAZINE HCL 50MG TABLET PO SCH ×2 (14:00→22:21)
[2019-04-20] MEDS: FUROSEMIDE 100MG/10ML VIAL IVP SCH (16:16)
[2019-04-20] MEDS: METHYLPREDNISOLONE SOD SUCC 40 MG/ML VIAL IV SCH (17:09)
[2019-04-20] MEDS: ATORVASTATIN CALCIUM 40MG TABLET PO SCH (21:22)
[2019-04-20] MEDS: INSULIN LISPRO 100 UNITS/ML SUBCUT SCH (21:28)
[2019-04-21] VITALS (35 sets, daily range): BP systolic 119–167; BP diastolic 45–95
[2019-04-21] MEDS: METHYLPREDNISOLONE SOD SUCC 40 MG/ML VIAL IV SCH ×3 (01:22→18:16)
[2019-04-21] MEDS: IPRATROPIUM BROMIDE (0.02%) 0.5MG/2.5ML NEB HHN SCH ×4 (01:29→20:49)
[2019-04-21] MEDS: CLONIDINE 0.1MG TABLET PO PRN (04:13)
[2019-04-21] MEDS: TRAMADOL 50MG TABLET PO PRN ×2 (04:14→10:15)
[2019-04-21] MEDS: HYDRALAZINE HCL 50MG TABLET PO SCH ×3 (05:22→23:42)
[2019-04-21 05:50] LABS: HEMATOCRIT. 28.4 % (36.0-48.0); HEMOGLOBIN. 9.5 g/dL (12.0-16.0); MEAN CORPUSCULAR VOLUME 80.8 fL (81.0-99.0); MEAN PLATELET VOLUME 8.2 fl (7.4-10.4); PLATELET 276 x1000/uL (130-400); RED BLOOD CELL COUNT 3.52 mill/uL (4.2-5.4); RED CELL DISTRIBUTION WIDTH 18.3 % (11.6-14.6)
[2019-04-21 07:17] LABS: PLATELET ESTIMATE NORMAL
[2019-04-21] MEDS: BLOOD SUGAR DIAGNOSTIC STRIP TEST SCH ×4 (08:44→21:44)
[2019-04-21] MEDS: FUROSEMIDE 100MG/10ML VIAL IVP SCH (08:51)
[2019-04-21] MEDS: AMLODIPINE 10MG TABLET PO SCH (08:52)
[2019-04-21] MEDS: INSULIN LISPRO 100 UNITS/ML SUBCUT SCH ×4 (08:52→21:47)
[2019-04-21] MEDS: CARVEDILOL 6.25 MG TABLET PO SCH ×2 (08:53→21:44)
[2019-04-21] MEDS: METOPROLOL TARTRATE 50MG TABLET PO SCH ×2 (08:53→21:45)
[2019-04-21] MEDS: METOLAZONE 2.5MG TABLET PO SCH (08:57)
[2019-04-21] MEDS: GUAIFENESIN 200MG/10ML SUGAR FREE UDC PO PRN (12:37)
[2019-04-21] MEDS: INSULIN GLARGINE UD 100 UNITS/ML SYR SUBCUT SCH (14:26)
[2019-04-21] MEDS: ATORVASTATIN CALCIUM 40MG TABLET PO SCH (21:44)
[2019-04-22] VITALS: BP 144/78
[2019-04-22] MEDS: IPRATROPIUM BROMIDE (0.02%) 0.5MG/2.5ML NEB HHN SCH ×4 (00:32→20:56)
[2019-04-22] MEDS: METHYLPREDNISOLONE SOD SUCC 40 MG/ML VIAL IV SCH ×3 (01:11→17:32)
[2019-04-22] MEDS: TRAMADOL 50MG TABLET PO PRN ×3 (03:38→21:08)
[2019-04-22] MEDS: ONDANSETRON HCL 4MG/2ML INJ IV PRN (03:56)
[2019-04-22] MEDS: HYDRALAZINE HCL 50MG TABLET PO SCH ×3 (06:28→21:40)
[2019-04-22] MEDS: BLOOD SUGAR DIAGNOSTIC STRIP TEST SCH ×4 (06:29→21:35)
[2019-04-22] MEDS: METOLAZONE 2.5MG TABLET PO SCH (08:33)
[2019-04-22] MEDS: GUAIFENESIN 200MG/10ML SUGAR FREE UDC PO PRN ×2 (08:33→14:40)
[2019-04-22] MEDS: AMLODIPINE 10MG TABLET PO SCH (08:34)
[2019-04-22] MEDS: CARVEDILOL 6.25 MG TABLET PO SCH ×2 (08:34→21:08)
[2019-04-22] MEDS: METOPROLOL TARTRATE 50MG TABLET PO SCH ×2 (08:34→21:07)
[2019-04-22] MEDS: FUROSEMIDE 100MG/10ML VIAL IVP SCH (08:34)
[2019-04-22 08:35] VITALS: BP 162/72
[2019-04-22] MEDS: INSULIN LISPRO 100 UNITS/ML SUBCUT SCH ×4 (08:42→21:40)
[2019-04-22] MEDS: INSULIN GLARGINE UD 100 UNITS/ML SYR SUBCUT SCH (10:00)
[2019-04-22 11:51] VITALS: BP 168/81
[2019-04-22 15:48] VITALS: BP 118/55
[2019-04-22] MEDS: ATORVASTATIN CALCIUM 40MG TABLET PO SCH (21:08)
[2019-04-22 23:57] VITALS: BP 160/79
[2019-04-23] MEDS: METHYLPREDNISOLONE SOD SUCC 40 MG/ML VIAL IV SCH ×3 (02:04→18:51)
[2019-04-23] MEDS: IPRATROPIUM BROMIDE (0.02%) 0.5MG/2.5ML NEB HHN SCH ×4 (03:15→20:49)
[2019-04-23 04:00] VITALS: BP 146/68
[2019-04-23] MEDS: BLOOD SUGAR DIAGNOSTIC STRIP TEST SCH ×4 (06:52→21:37)
[2019-04-23] MEDS: HYDRALAZINE HCL 50MG TABLET PO SCH ×3 (06:53→22:14)
[2019-04-23 08:25] VITALS: BP 156/83
[2019-04-23] MEDS: CARVEDILOL 6.25 MG TABLET PO SCH ×2 (09:00→21:00)
[2019-04-23] MEDS: METOPROLOL TARTRATE 50MG TABLET PO SCH ×2 (09:00→21:00)
[2019-04-23] MEDS: METOLAZONE 2.5MG TABLET PO SCH (09:43)
[2019-04-23] MEDS: AMLODIPINE 10MG TABLET PO SCH (09:44)
[2019-04-23] MEDS: FUROSEMIDE 20MG/2ML VIAL IVP SCH (09:45)
[2019-04-23] MEDS: INSULIN GLARGINE UD 100 UNITS/ML SYR SUBCUT SCH ×2 (09:47→22:15)
[2019-04-23] MEDS: INSULIN LISPRO 100 UNITS/ML SUBCUT SCH ×4 (09:47→22:16)
[2019-04-23 12:00] VITALS: BP 147/72
[2019-04-23] MEDS: GUAIFENESIN 200MG/10ML SUGAR FREE UDC PO PRN (13:44)
[2019-04-23 14:47] LABS: HEMATOCRIT 30.6 % (36.0-48.0); HEMOGLOBIN 9.8 g/dL (12.0-16.0); MEAN CORPUSCULAR HEMOGLOBIN 26.4 pg (28.0-32.0); MEAN CORPUSCULAR VOLUME 82.1 fL (81.0-99.0); PLATELET 278 x1000/uL (130-400); RED BLOOD CELL COUNT 3.72 mill/uL (4.2-5.4); RED CELL DISTRIBUTION WIDTH 17.6 % (11.6-14.6)
[2019-04-23 16:17] VITALS: BP 131/59
[2019-04-23 20:00] VITALS: BP 162/72
[2019-04-23] MEDS: ATORVASTATIN CALCIUM 40MG TABLET PO SCH (22:13)
[2019-04-23] MEDS: TRAMADOL 50MG TABLET PO PRN (22:21)
[2019-04-24] VITALS: BP 173/75
[2019-04-24] MEDS: CLONIDINE 0.1MG TABLET PO PRN (00:34)
[2019-04-24] MEDS: IPRATROPIUM BROMIDE (0.02%) 0.5MG/2.5ML NEB HHN SCH ×4 (02:31→21:52)
[2019-04-24 04:00] VITALS: BP 147/65
[2019-04-24] MEDS: BLOOD SUGAR DIAGNOSTIC STRIP TEST SCH ×3 (05:56→17:43)
[2019-04-24] MEDS: HYDRALAZINE HCL 50MG TABLET PO SCH ×2 (05:57→13:34)
[2019-04-24] MEDS: INSULIN LISPRO 100 UNITS/ML SUBCUT SCH ×3 (07:30→18:01)
[2019-04-24 08:00] VITALS: BP 191/91
[2019-04-24 08:26] LABS: HEMATOCRIT. 30.3 % (36.0-48.0); MEAN CORPUSCULAR HEMOGLOBIN 26.5 pg (28.0-32.0); MEAN CORPUSCULAR VOLUME 80.4 fL (81.0-99.0); MEAN PLATELET VOLUME 8.7 fl (7.4-10.4); PLATELET 281 x1000/uL (130-400); RED BLOOD CELL COUNT 3.77 mill/uL (4.2-5.4); RED CELL DISTRIBUTION WIDTH 17.1 % (11.6-14.6)
[2019-04-24] MEDS: CARVEDILOL 6.25 MG TABLET PO SCH ×2 (09:00→17:57)
[2019-04-24] MEDS: METOPROLOL TARTRATE 50MG TABLET PO SCH (09:00)
[2019-04-24] MEDS: AMLODIPINE 10MG TABLET PO SCH (10:11)
[2019-04-24] MEDS: METOLAZONE 2.5MG TABLET PO SCH (10:11)
[2019-04-24] MEDS: FUROSEMIDE 20MG/2ML VIAL IVP SCH (10:12)
[2019-04-24] MEDS: METHYLPREDNISOLONE SOD SUCC 40 MG/ML VIAL IV SCH (10:12)
[2019-04-24] MEDS ORDERED: DOCUSATE SODIUM 100MG CAPSULE PO PRN (10:30)
[2019-04-24] MEDS ORDERED: MAGNESIUM HYDROXIDE 400MG/5ML 30ML UDC PO PRN (10:30)
[2019-04-24] MEDS ORDERED: DOCUSATE SODIUM 250MG CAPSULE PO PRN (10:34)
[2019-04-24] MEDS ORDERED: BISACODYL 10MG SUPP PR PRN (10:45)
[2019-04-24] MEDS: INSULIN GLARGINE UD 100 UNITS/ML SYR SUBCUT SCH (11:14)
[2019-04-24 12:00] VITALS: BP 148/73
[2019-04-24 14:21] LABS: PLATELET ESTIMATE NORMAL
[2019-04-24 17:40] VITALS: BP 158/66
[2019-04-24 20:00] VITALS: BP 138/72
[2019-04-25 00:20] VITALS: BP 132/89
[2019-04-25] MEDS: IPRATROPIUM BROMIDE (0.02%) 0.5MG/2.5ML NEB HHN SCH ×4 (02:16→21:07)
[2019-04-25 04:00] VITALS: BP 137/88
[2019-04-25 06:30] LABS: BASOPHILS % 0.1 % (0.0-2.0); EOSINOPHILS % 0.5 % (0.0-5.0); HEMATOCRIT. 29.9 % (36.0-48.0); MEAN CORPUSCULAR HEMOGLOBIN 26.5 pg (28.0-32.0); MEAN CORPUSCULAR VOLUME 79.4 fL (81.0-99.0); MEAN PLATELET VOLUME 8.8 fl (7.4-10.4); MONOCYTES % 9.2 % (2.0-8.0); NEUTROPHILS % 72.2 % (40.0-76.0); PLATELET 283 x1000/uL (130-400); RED BLOOD CELL COUNT 3.77 mill/uL (4.2-5.4); RED CELL DISTRIBUTION WIDTH 17.3 % (11.6-14.6)
[2019-04-25] MEDS: BLOOD SUGAR DIAGNOSTIC STRIP TEST SCH ×5 (06:30→21:00)
[2019-04-25 08:00] VITALS: BP 137/75
[2019-04-25] MEDS: METOPROLOL TARTRATE 50MG TABLET PO SCH ×2 (08:18→22:06)
[2019-04-25] MEDS: INSULIN LISPRO 100 UNITS/ML SUBCUT SCH ×4 (08:27→22:17)
[2019-04-25] MEDS: CARVEDILOL 6.25 MG TABLET PO SCH ×2 (08:42→22:05)
[2019-04-25] MEDS: AMLODIPINE 10MG TABLET PO SCH (09:38)
[2019-04-25] MEDS: FUROSEMIDE 20MG/2ML VIAL IVP SCH (09:38)
[2019-04-25] MEDS: METHYLPREDNISOLONE SOD SUCC 40 MG/ML VIAL IV SCH (09:38)
[2019-04-25] MEDS: INSULIN GLARGINE UD 100 UNITS/ML SYR SUBCUT SCH ×3 (10:26→22:46)
[2019-04-25 12:00] VITALS: BP 145/58
[2019-04-25] MEDS: HYDRALAZINE HCL 50MG TABLET PO SCH ×2 (14:46→22:05)
[2019-04-25] MEDS: ONDANSETRON HCL 4MG/2ML INJ IV PRN ×2 (14:48→22:43)
[2019-04-25 16:00] VITALS: BP 136/64
[2019-04-25 20:00] VITALS: BP 138/75
[2019-04-25] MEDS: ATORVASTATIN CALCIUM 40MG TABLET PO SCH ×2 (21:00→22:05)
[2019-04-26 00:22] VITALS: BP 134/65
[2019-04-26] MEDS: IPRATROPIUM BROMIDE (0.02%) 0.5MG/2.5ML NEB HHN SCH ×4 (01:58→21:58)
[2019-04-26 04:00] VITALS: BP 124/49
[2019-04-26] MEDS: HYDRALAZINE HCL 50MG TABLET PO SCH ×3 (05:42→21:59)
[2019-04-26] MEDS: BLOOD SUGAR DIAGNOSTIC STRIP TEST SCH ×4 (07:20→20:52)
[2019-04-26] MEDS: FUROSEMIDE 20MG/2ML VIAL IVP SCH (08:15)
[2019-04-26] MEDS: METHYLPREDNISOLONE SOD SUCC 40 MG/ML VIAL IV SCH (08:15)
[2019-04-26] MEDS: METOPROLOL TARTRATE 50MG TABLET PO SCH ×2 (08:16→20:52)
[2019-04-26] MEDS: CARVEDILOL 6.25 MG TABLET PO SCH ×2 (08:16→20:52)
[2019-04-26] MEDS: AMLODIPINE 10MG TABLET PO SCH (08:18)
[2019-04-26] MEDS: INSULIN LISPRO 100 UNITS/ML SUBCUT SCH ×4 (08:46→20:55)
[2019-04-26 09:39] LABS: BASOPHILS % 0.2 % (0.0-2.0); EOSINOPHILS % 2.1 % (0.0-5.0); HEMATOCRIT. 31.8 % (36.0-48.0); HEMOGLOBIN. 10.4 g/dL (12.0-16.0); LYMPHOCYTES % 25.7 % (20.0-50.0); MEAN CORPUSCULAR HEMOGLOBIN 25.7 pg (28.0-32.0); MEAN CORPUSCULAR VOLUME 78.9 fL (81.0-99.0); MEAN PLATELET VOLUME 8.9 fl (7.4-10.4); MONOCYTES % 7.4 % (2.0-8.0); NEUTROPHILS % 64.6 % (40.0-76.0); PLATELET 300 x1000/uL (130-400); RED BLOOD CELL COUNT 4.03 mill/uL (4.2-5.4); RED CELL DISTRIBUTION WIDTH 16.5 % (11.6-14.6)
[2019-04-26] MEDS ORDERED: LOPERAMIDE 1 MG/7.5 ML UDC PO PRN (10:00)
[2019-04-26] MEDS ORDERED: LOPERAMIDE HCL 2MG CAPSULE PO PRN ×2 (11:00→15:00)
[2019-04-26 12:00] VITALS: BP 148/67
[2019-04-26] MEDS: INSULIN GLARGINE UD 100 UNITS/ML SYR SUBCUT SCH (12:40)
[2019-04-26 20:00] VITALS: BP 170/64
[2019-04-26] MEDS: ATORVASTATIN CALCIUM 40MG TABLET PO SCH (21:59)
[2019-04-26] MEDS ORDERED: INSULIN GLARGINE UD 100 UNITS/ML SYR SUBCUT SCH (22:00)
[2019-04-27] VITALS: BP 140/65
[2019-04-27] MEDS: IPRATROPIUM BROMIDE (0.02%) 0.5MG/2.5ML NEB HHN SCH ×2 (02:48→10:04)
[2019-04-27] MEDS: HYDRALAZINE HCL 50MG TABLET PO SCH ×2 (06:46→15:15)
[2019-04-27] MEDS: BLOOD SUGAR DIAGNOSTIC STRIP TEST SCH ×2 (06:46→12:20)
[2019-04-27] MEDS: INSULIN LISPRO 100 UNITS/ML SUBCUT SCH ×2 (07:50→13:56)
[2019-04-27 08:01] VITALS: BP 138/66
[2019-04-27] MEDS: METOPROLOL TARTRATE 50MG TABLET PO SCH (09:00)
[2019-04-27] MEDS: CARVEDILOL 6.25 MG TABLET PO SCH (09:00)
[2019-04-27] MEDS: AMLODIPINE 10MG TABLET PO SCH (09:01)
[2019-04-27] MEDS: FUROSEMIDE 20MG/2ML VIAL IVP SCH (09:01)
[2019-04-27] MEDS: INSULIN GLARGINE UD 100 UNITS/ML SYR SUBCUT SCH (11:01)
[2019-04-27 12:05] LABS: HEMATOCRIT 32.7 % (36.0-48.0); HEMOGLOBIN 10.6 g/dL (12.0-16.0); MEAN CORPUSCULAR HEMOGLOBIN 25.8 pg (28.0-32.0); MEAN CORPUSCULAR VOLUME 79.8 fL (81.0-99.0); PLATELET 323 x1000/uL (130-400); RED CELL DISTRIBUTION WIDTH 16.6 % (11.6-14.6)
[2019-04-27 12:11] VITALS: BP 170/74
[2019-04-27 14:52] VITALS: BP 170/74
== END 2019-04-27 15:36 | disposition home or self-care (01) | DRG 192 ==
LOC: ER 02:10 → 5EST 05:01 → EDBEDREQ 05:04 → EDBEDREQTM 05:04 → ENRESERV 07:30 → CVICU 04-19 19:20 → 6WST 04-21 18:04
PROVIDERS: ADMIT Internal Medicine; ATTEND Internal Medicine
PROC: 5A09357 Assistance with Respiratory Ventilation, Less than 24 Consecutive Hours, Continuous Positive Airway Pressure (ICD-10-PCS; 2019-04-15)
PROC: 5A09357 Assistance with Respiratory Ventilation, Less than 24 Consecutive Hours, Continuous Positive Airway Pressure (ICD-10-PCS; 2019-04-17)
PROC: 4A0234Z Measurement of Cardiac Electrical Activity, Percutaneous Approach (ICD-10-PCS; principal; 2019-04-19)
PROC: 02K83ZZ Map Conduction Mechanism, Percutaneous Approach (ICD-10-PCS; 2019-04-19)
PROC: 5A1935Z Respiratory Ventilation, Less than 24 Consecutive Hours (ICD-10-PCS; 2019-04-19)
PROC: 02573ZK Destruction of Left Atrial Appendage, Percutaneous Approach (ICD-10-PCS; 2019-04-19)
PROC: 4A023FZ Measurement of Cardiac Rhythm, Percutaneous Approach (ICD-10-PCS; 2019-04-19)
PROC: 0BH17EZ Insertion of Endotracheal Airway into Trachea, Via Natural or Artificial Opening (ICD-10-PCS; 2019-04-19)
DX: I48.4 Atypical atrial flutter (principal); J96.00 Acute respiratory failure, unspecified whether with hypoxia or hypercapnia; I50.43 Acute on chronic combined systolic (congestive) and diastolic (congestive) heart failure; N17.9 Acute kidney failure, unspecified; E46 Unspecified protein-calorie malnutrition; E11.22 Type 2 diabetes mellitus with diabetic chronic kidney disease; E66.01 Morbid (severe) obesity due to excess calories; I07.1 Rheumatic tricuspid insufficiency; I48.91 Unspecified atrial fibrillation; I42.9 Cardiomyopathy, unspecified; J44.1 Chronic obstructive pulmonary disease with (acute) exacerbation; E87.1 Hypo-osmolality and hyponatremia; I13.0 Hypertensive heart and chronic kidney disease with heart failure and stage 1 through stage 4 chronic kidney disease, or unspecified chronic kidney disease; I25.10 Atherosclerotic heart disease of native coronary artery without angina pectoris; N18.9 Chronic kidney disease, unspecified; G47.33 Obstructive sleep apnea (adult) (pediatric); D50.9 Iron deficiency anemia, unspecified; E78.5 Hyperlipidemia, unspecified; I27.20 Pulmonary hypertension, unspecified; I31.3 Pericardial effusion (noninflammatory); K59.00 Constipation, unspecified; Z79.899 Other long term (current) drug therapy; Z87.891 Personal history of nicotine dependence; Z98.891 History of uterine scar from previous surgery; Z68.43 Body mass index [BMI] 50.0-59.9, adult; Z88.2 Allergy status to sulfonamides; Z88.6 Allergy status to analgesic agent; Z88.5 Allergy status to narcotic agent
CPT/HCPCS: 36415; 36600; 71045; 78580; 80048; 80061; 80305; 81003; 82375; 82550; 82553; 82570; 82805; 82962; 83036; 83605; 83880; 84156; 84439; 84443; 84484; 84703; 85027; 85379; 86850; 86900; 86920; 87070; 87077; 93005; 93306; 93613; 93621; 93653; 93662; 93970; 94002; 94003; 94640; 94660; 97116; 97162; 97530; 99291; C1731; C1732; C1759; C1893; J0360; J0690; J1100; J1160; J1170; J1200; J1644; J1650; J1815; J1940; J2060; J2250; J2270; J2405; J2704; J2710; J2920; J2930; J3010; J3490; J7060; J7611; J7620; A4315